=== PATIENT | male | born 1990 | race Caucasian/White ===

== ENCOUNTER 2016-09-29 05:11 | Emergency (ER) | payer OTHER ==
[~2016-09-29] VITALS: Ht 170.2 cm; Wt 90.7 kg
--- NOTE | 2016-09-29 06:09 | ED GI/GU/ABDOMINAL COMPLAINT ---
History of Present Illness General Chief Complaint: General Adult Stated Complaint: "THINK I HAVE A KIDNEY STONE" PER PT Source: patient Exam Limitations: no limitations Vital Signs & Intake/Output Vital Signs & Intake/Output Vital Signs Date Time Temp Pulse Resp B/P B/P Pulse O2 O2 Flow FiO2 Mean Ox Delivery Rate 09/29 0531 96.3 74 16 125/59 96 Room Air Allergies Coded Allergies: No Known Allergies (09/29/16) Triage Note: PT TO ED FOR L FLANK PAIN THAT WOKE HIM FROM SLEEP AT 0430. SINCE ARRIVING TO DEPT PT REPORTS THAT PAIN HAS GONE AWAY. AWAKE/ALERT WITH EASY WOB. DENIES ANY OTHER COMPLAINTS. Triage Nurses Notes Reviewed? yes Onset: Abrupt Duration: hour(s):, constant, gone now Quality/Severity: sharpness, severe Location: left flank, left lower quadrant Activities at Onset: rest Prior Abdominal Problems: similar symptoms (DUE TO RENAL COLIC) HPI: Patient presents for evaluation of a sudden onset of a left-sided back pain began wrapping around to the left lower quadrant began abruptly at about 4:30 this morning. Patient felt nauseous along with the pain but denied any associated hematuria or dysuria. He did not try any pain medication. Fortunately his pain is now resolved. Past History Travel History Traveled to [place] past 21 day No Medical History Any Pertinent Medical History? see below for history Neurological: NONE EENT: NONE Cardiovascular: NONE Respiratory: NONE Gastrointestinal: NONE Hepatic: NONE Renal: NONE Musculoskeletal: NONE Psychiatric: NONE Endocrine: NONE Blood Disorders: NONE Surgical History Surgical History: non-contributory Psychosocial History What is your primary language Kosovan Tobacco Use: Never used ETOH Use: denies use Illicit Drug Use: denies illicit drug use Family History Hx Contributory? No Review of Systems Review of Systems Constitutional: Reports: no symptoms. EENTM: Reports: no symptoms. Respiratory: Reports: no symptoms. Cardiovascular: Reports: no symptoms. GI: Reports: see HPI. Genitourinary: Reports: no symptoms. Musculoskeletal: Reports: back pain. Skin: Reports: no symptoms. Neurological/Psychological: Reports: no symptoms. Hematologic/Endocrine: Reports: no symptoms. Immunologic/Allergic: Reports: no symptoms. All Other Systems: Reviewed and Negative Physical Exam Physical Exam Gastrointestinal: SEE BELOW Comments: Gen.: Well-nourished, well-developed, no acute respiratory distress. Head: Normocephalic, atraumatic. Eyes: Normal inspection bilaterally Ears: Normal inspection bilaterally Nose: Normal inspection Throat/mouth : Moist mucosa Neck: Supple, full range of motion, no goiter Heart: Regular rate and rhythm, no murmurs rubs or gallops Lungs: Clear to auscultation bilaterally with normal air entry Chest: Nontender Back: Normal range of motion, no CVAT Abdomen: Soft, nontender, nondistended, normal bowel sounds Extremities: Normal range of motion grossly, equal radial pulses, no cyanosis clubbing or edema Neurologic: Cranial nerves grossly intact, speech is clear Skin: warm and dry Psychiatric: Calm, cooperative, no apparent delusions or hallucinations Core Measures ACS in differential dx? No Severe Sepsis Present: No Septic Shock Present: No Progress Differential Diagnosis: MUSCLE STRAIN, RENAL COLIC, PYELONEPHRITIS Plan of Care: Orders Procedure Date/time Status URINALYSIS 09/29 06 Active Follow-up with PCP as needed (CARIE VIVAS,TODD Angulo) Initial ED EKG: none Departure Departure Disposition: HOME OR SELF CARE Condition: Stable Clinical Impression Primary Impression: Renal colic on left side Referrals: UNKNOWN (PCP/Family) Additional Instructions: Follow-up with your primary care physician if any further episodes of pain. Return immediately if any concerns or sudden worsening. Thank you for choosing the [facility] for your care. It was a pleasure to serve you today. Todd Schneider M.D. [facility] Departure Forms: Customer Survey General Discharge Information
== END 2016-09-29 06:27 ==
LOC: ERH 05:11
DX: N23 Unspecified renal colic (principal)
CPT/HCPCS: 81001